=== PATIENT | female | born 1950 | race Caucasian/White ===

== ENCOUNTER → 2023-09-28 08:21 | Outpatient (BNVA) | payer OTHER, SELFPAY | PROVIDERS: Family Provider Family Medicine; PCP Family Medicine; Visit Provider Family Medicine | DX: Z00.00 Encounter for general adult medical examination without abnormal findings (principal); Z13.6 Encounter for screening for cardiovascular disorders | CPT/HCPCS: 80053; 80061 ==

== ENCOUNTER 2023-10-12 10:42 | Outpatient (CLI) | payer OTHER, SELFPAY ==
--- NOTE | 2023-10-12 10:52 | MM_ITS ---
WS: [id number] BILATERAL 3D TOMOSYNTHESIS DIGITAL DIAGNOSTIC MAMMOGRAPHY WITH CAD CLINICAL INFORMATION: ANNUAL - HX BR CA HISTORY: History of RIGHT breast cancer COMPARISON: 2019 TECHNIQUE: Bilateral CC, MLO, and ML views. FINDINGS: Innumerable mole markers. The breasts are composed of heterogeneous fibroglandular density, which can limit the detection of sm all underlying mass lesions. Vascular calcification. Postoperative changes RIGHT breast. Punctate and lucent centered calcifications. Stable clustered calcifications. Stable nodular breast tissue bilate rally. No suspicious focal mass, asymmetry, calcifications, or architectural distortion. No evidence of louisa gnancy. IMPRESSION: MM/[place] [id number] BI-RADS: 2-Benign FOLLOW UP: 1 Year Follow-up Recommend return to annual diagnostic mammography.
== END 2023-10-12 10:43 | disposition home or self-care (01) ==
LOC: RAD 10:42
PROVIDERS: Family Provider Family Medicine; PCP Family Medicine; Visit Provider Family Medicine
DX: Z85.3 Personal history of malignant neoplasm of breast (principal); Z12.31 Encounter for screening mammogram for malignant neoplasm of breast
CPT/HCPCS: 77062; G0279

== ENCOUNTER → 2024-11-22 13:58 | Outpatient (BNVA) | payer OTHER, SELFPAY | PROVIDERS: Family Provider Family Medicine; PCP Family Medicine; Visit Provider Family Medicine | DX: Z00.00 Encounter for general adult medical examination without abnormal findings (principal) | CPT/HCPCS: 80053; 80061 ==